=== PATIENT | male | born 1995 | race African-American/Black ===

== ENCOUNTER 2024-04-09 07:43 | Emergency (ER) | payer MEDICAID ==
[~2024-04-09] VITALS: Ht 172.7 cm; Wt 65.0 kg
[2024-04-09 07:45] VITALS: O2SAT 99
[2024-04-09] MEDS ORDERED: LACTATED RINGERS 1,000 ML IV SCH (08:15)
[2024-04-09 08:17] LABS: BASOPHILS % 0.9 % (0.0-2.0); EOSINOPHILS % 1.9 % (0.0-5.0); HEMATOCRIT. 41.4 % (42.0-52.0); HEMOGLOBIN. 13.7 g/dL (14.0-18.0); LYMPHOCYTES % 58.4 % (20.0-50.0); MEAN CORPUSCULAR HEMOGLOBIN 31.1 pg (28.0-32.0); MEAN CORPUSCULAR VOLUME 94.1 fL (80.0-94.0); MEAN PLATELET VOLUME 9.4 fl (7.4-10.4); MONOCYTES % 6.6 % (2.0-8.0); NEUTROPHILS % 32.2 % (40.0-76.0); PLATELET 150 x1000/uL (130-400); RED CELL DISTRIBUTION WIDTH 13.6 % (11.6-14.6); WHITE BLOOD COUNT 4.6 x1000/uL (4.5-11.0)
[2024-04-09 08:28] LABS: CHLORIDE 108 mEq/L (98-107); POTASSIUM 3.3 mEq/L (3.5-5.1); SODIUM 140 mEq/L (136-145)
[2024-04-09 08:29] LABS: CARBON DIOXIDE 26 mEq/L (21-32)
[2024-04-09 08:30] LABS: CALCIUM 9.7 mg/dL (8.7-10.4)
[2024-04-09 08:34] LABS: CREATININE 0.9 mg/dL (0.6-1.3)
[2024-04-09 08:35] LABS: GLUCOSE 128 mg/dL (70-105); UREA NITROGEN BLOOD 12 mg/dL (9-23)
[2024-04-09 08:36] LABS: ALANINE AMINOTRANSFERASE 9 IU/L (10-49)
[2024-04-09 08:37] LABS: ALBUMIN 4.6 g/dL (3.2-4.8); ASPARTATE AMINOTRANSFERASE 18 IU/L (<34); BILIRUBIN TOTAL 0.6 mg/dL (0.1-1.0); PROTEIN TOTAL 7.3 g/dL (6.0-8.3)
[2024-04-09] MEDS: LEVETIRACETAM 500MG PREMIX 100 ML IV ONE ×2 (08:41→09:13)
[2024-04-09 10:00] VITALS: BP 107/61; PULSE 57; RESP 18; TEMP 36.61404; O2SAT 99
== END 2024-04-09 10:01 | disposition home or self-care (01) ==
LOC: ER 08:00
DX: R56.9 Unspecified convulsions (principal)
CPT/HCPCS: 80053; 85025; 36415; 93005; 96365; 99284; J1953; Z7610

== ENCOUNTER 2024-06-02 15:08 | Emergency (ER) | payer MEDICAID ==
[~2024-06-02] VITALS: Ht 175.3 cm; Wt 63.5 kg
[2024-06-02 16:02] VITALS: O2SAT 99
[2024-06-02] MEDS ORDERED: KEPP500 MT (17:06)
[2024-06-02 17:16] VITALS: BP 125/77; PULSE 62; RESP 16; TEMP 36.83628; O2SAT 99
== END 2024-06-02 18:05 | disposition home or self-care (01) ==
LOC: ER 15:12
DX: R56.9 Unspecified convulsions (principal); Z76.0 Encounter for issue of repeat prescription; Z91.148 Patient's other noncompliance with medication regimen for other reason
CPT/HCPCS: 99281

== ENCOUNTER 2024-07-06 05:34 | Emergency (ER) | payer MEDICAID ==
[~2024-07-06] VITALS: Ht 180.3 cm; Wt 76.0 kg
[~2024-07-06 05:34] MED LIST: KEPP500 MT
[2024-07-06 05:40] VITALS: TEMP 98.1; O2SAT 99
[2024-07-06] MEDS: LACTATED RINGERS 1,000 ML IV SCH (06:22)
[2024-07-06] MEDS: LEVETIRACETAM 500MG PREMIX 100 ML IV ONE ×2 (06:22)
[2024-07-06 07:30] VITALS: BP 113/56; PULSE 55; RESP 21; O2SAT 100
[2024-07-06 07:33] LABS: CARBON DIOXIDE 28 mEq/L (21-32); CHLORIDE 104 mEq/L (98-107); POTASSIUM 3.9 mEq/L (3.5-5.1); SODIUM 138 mEq/L (136-145)
[2024-07-06 07:34] LABS: CALCIUM 9.5 mg/dL (8.7-10.4)
[2024-07-06 07:39] LABS: CREATININE 1.1 mg/dL (0.6-1.3); GLUCOSE 96 mg/dL (70-105); UREA NITROGEN BLOOD 14 mg/dL (9-23)
[2024-07-06 07:40] LABS: ALANINE AMINOTRANSFERASE 10 IU/L (10-49)
[2024-07-06 07:41] LABS: ALBUMIN 4.9 g/dL (3.2-4.8); ASPARTATE AMINOTRANSFERASE 26 IU/L (<34); BILIRUBIN TOTAL 0.4 mg/dL (0.1-1.0); PROTEIN TOTAL 7.3 g/dL (6.0-8.3)
[2024-07-06] MEDS ORDERED: KEPP500 MT (08:06)
[2024-07-06 08:21] LABS: BASOPHILS % 0.5 % (0.0-2.0); EOSINOPHILS % 1.8 % (0.0-5.0); HEMATOCRIT. 41.6 % (42.0-52.0); HEMOGLOBIN. 14.1 g/dL (14.0-18.0); LYMPHOCYTES % 58.9 % (20.0-50.0); MEAN CORPUSCULAR HEMOGLOBIN 31.3 pg (28.0-32.0); MEAN CORPUSCULAR HGB CONC 33.8 g/dL (31.0-37.0); MEAN CORPUSCULAR VOLUME 92.6 fL (80.0-94.0); MEAN PLATELET VOLUME 10.1 fl (7.4-10.4); MONOCYTES % 7.8 % (2.0-8.0); PLATELET 150 x1000/uL (130-400); RED CELL DISTRIBUTION WIDTH 13.5 % (11.6-14.6); WHITE BLOOD COUNT 4.6 x1000/uL (4.5-11.0)
== END 2024-07-06 08:05 | disposition home or self-care (01) ==
LOC: ER 05:44
DX: R56.9 Unspecified convulsions (principal); Z91.148 Patient's other noncompliance with medication regimen for other reason
CPT/HCPCS: 99284; 96365; 80053; 82962; 85025; 36415; 93005; J1953

== ENCOUNTER 2024-08-04 14:13 | Emergency (ER) | payer MEDICAID, OTHER ==
[~2024-08-04] VITALS: Ht 175.3 cm; Wt 59.0 kg
[2024-08-04 14:17] VITALS: O2SAT 96
[2024-08-04 14:47] VITALS: BP 105/58; PULSE 82; RESP 12; TEMP 37; O2SAT 97
[2024-08-04] MEDS ORDERED: KEPP500 MT (14:51)
== END 2024-08-04 14:57 | disposition home or self-care (01) ==
LOC: ER 14:13
DX: R56.9 Unspecified convulsions (principal); Z76.0 Encounter for issue of repeat prescription
CPT/HCPCS: 99281; 99283

== ENCOUNTER 2024-12-14 08:38 | Emergency (ER) | payer MEDICAID ==
[~2024-12-14] VITALS: Ht 175.3 cm; Wt 60.0 kg
[2024-12-14 08:48] VITALS: O2SAT 99
[2024-12-14] MEDS ORDERED: KEPP500 MT (09:32)
[2024-12-14 09:43] VITALS: BP 124/77; PULSE 65; RESP 18; TEMP 36.8; O2SAT 99
== END 2024-12-14 09:52 | disposition home or self-care (01) ==
LOC: ER 08:38
DX: R56.9 Unspecified convulsions (principal); Z76.0 Encounter for issue of repeat prescription; Z91.148 Patient's other noncompliance with medication regimen for other reason
CPT/HCPCS: 99281

== ENCOUNTER 2025-03-13 11:03 | Emergency (ER) | payer MEDICAID ==
[~2025-03-13] VITALS: Ht 172.7 cm; Wt 50.0 kg
[2025-03-13 11:08] VITALS: O2SAT 98
[2025-03-13] MEDS: LEVETIRACETAM 1000MG PREMIX 100 ML IV ONE (12:11)
[2025-03-13 12:36] LABS: BASOPHILS % 0.7 % (0.0-2.0); EOSINOPHILS % 0.2 % (0.0-5.0); HEMATOCRIT. 41.1 % (42.0-52.0); HEMOGLOBIN. 13.4 g/dL (14.0-18.0); LYMPHOCYTES % 21.6 % (20.0-50.0); MEAN PLATELET VOLUME 8.3 fl (7.4-10.4); MONOCYTES % 5.9 % (2.0-8.0); NEUTROPHILS % 71.6 % (40.0-76.0); PLATELET 176 x1000/uL (130-400); RED BLOOD CELL COUNT 4.45 mill/uL (4.7-6.1); RED CELL DISTRIBUTION WIDTH 13.1 % (11.6-14.6)
[2025-03-13 12:52] LABS: CREATININE 0.9 mg/dL (0.6-1.3); ETHANOL BLOOD < 10 mg/dL (<10); UREA NITROGEN BLOOD 9 mg/dL (9-23)
[2025-03-13] MEDS: SODIUM CHLORIDE 0.9% 1,000 ML IV ONE (14:00)
[2025-03-13 14:53] VITALS: BP 104/52; PULSE 56; RESP 16; TEMP 36.8; O2SAT 98
== END 2025-03-13 15:23 | disposition home or self-care (01) ==
LOC: ER 11:08
DX: R56.9 Unspecified convulsions (principal); Z79.899 Other long term (current) drug therapy
CPT/HCPCS: 80048; 80320; 85025; 36415; 93005; 96365; 99284; 82542; J1953; J7030; G0480

== ENCOUNTER 2025-03-15 16:32 | Emergency (ER) | payer MEDICAID ==
[2025-03-15 16:37] VITALS: PULSE 72; O2SAT 99
[2025-03-15] MEDS ORDERED: LEVE500T19 MT (19:13)
== END 2025-03-15 19:20 | disposition home or self-care (01) ==
LOC: ER 16:32
DX: R56.9 Unspecified convulsions (principal); Z76.0 Encounter for issue of repeat prescription
CPT/HCPCS: 99281

== ENCOUNTER 2025-04-13 11:43 | Emergency (ER) | payer MEDICAID ==
[~2025-04-13] VITALS: Ht 170.2 cm; Wt 57.0 kg
[~2025-04-13 11:43] MED LIST changes: +LEVE500T19 MT
[2025-04-13 12:32] VITALS: TEMP 37.1; O2SAT 99
[2025-04-13] MEDS ORDERED: LEVE-20 MT (13:21)
[2025-04-13] MEDS: LEVETIRACETAM 500MG TABLET PO ONE (13:26)
[2025-04-13 13:34] VITALS: BP 116/64; PULSE 65; RESP 18; O2SAT 98
== END 2025-04-13 13:58 | disposition home or self-care (01) ==
LOC: ER 11:43
DX: G40.909 Epilepsy, unspecified, not intractable, without status epilepticus (principal); Z76.0 Encounter for issue of repeat prescription
CPT/HCPCS: 99283

== ENCOUNTER 2025-05-12 21:51 | Emergency (ER) | payer MEDICAID ==
[~2025-05-12] VITALS: Ht 170.2 cm; Wt 57.0 kg
[~2025-05-12 21:51] MED LIST changes: +LEVE-20 MT
[2025-05-12 21:52] VITALS: O2SAT 97
[2025-05-12 21:58] VITALS: BP 117/73; PULSE 88; RESP 18; TEMP 36.7; O2SAT 97
[2025-05-12] MEDS ORDERED: KEPP500 MT (22:33)
== END 2025-05-12 22:44 | disposition home or self-care (01) ==
LOC: ER 21:51
DX: R56.9 Unspecified convulsions (principal); Z76.0 Encounter for issue of repeat prescription
CPT/HCPCS: 99282

== ENCOUNTER 2025-06-11 18:38 | Emergency (ER) | payer MEDICAID ==
[~2025-06-11] VITALS: Ht 170.2 cm; Wt 57.0 kg
[2025-06-11 18:46] VITALS: O2SAT 100
[2025-06-11] MEDS ORDERED: KEPP500 MT (19:30)
[2025-06-11 20:05] VITALS: BP 114/72; PULSE 88; RESP 16; TEMP 36.3; O2SAT 99
== END 2025-06-11 20:51 | disposition home or self-care (01) ==
LOC: ER 18:38
DX: R56.9 Unspecified convulsions (principal); Z98.890 Other specified postprocedural states
CPT/HCPCS: 99283